=== PATIENT | male | born 1955 | race Caucasian/White ===

== ENCOUNTER 2020-11-24 09:17 | Outpatient (CLI) | payer MEDICARE | END 2020-11-24 09:18 | disposition home or self-care (01) | LOC: DTY/OP 09:17 | PROVIDERS: ATTEND Surgery | DX: E66.01 Morbid (severe) obesity due to excess calories (principal) | CPT/HCPCS: 97802 ==

== ENCOUNTER 2021-01-12 08:33 | Outpatient (CLI) | payer MEDICARE ==
[2021-01-12 09:36] LABS: #Eosinphils 0.1 10x3/uL (0.0-0.5); #Monocytes 0.5 10x3/uL (0.0-1.1); #Neutrophils 2.7 10x3/uL (1.5-8.4); %Basophils 0.7 % (0.0-2.0); %Eosinophils 2.6 % (0.0-6.0); %Lymphocytes 36.9 % (18.0-47.0); %Monocytes 9.2 % (0.0-10.0); %Neutrophils 50.4 % (40.0-75.0); Hemoglobin 12.5 g/dL (13.5-17.5); Mean Corpuscular HGB CONC 32.8 g/dL (32.0-36.0); Mean Corpuscular Hemoglobin 26.4 pg (27.0-33.0); Mean Corpuscular Volume 80.4 fl (81.2-95.1); Mean Platelet Volume 9.4 fl (7.4-10.4); Platelet Count 249 10x3/uL (150-450); RBC Distribution Width 13.6 % (11.5-14.5); Red Blood Cell (RBC) Count 4.74 10x6/uL (4.32-5.72); White Blood Cell (WBC) Count 5.4 10x3/uL (3.5-10.5)
[2021-01-12 10:00] LABS: ALT (SGPT) 35 U/L (8-55); AST (SGOT) 41 U/L (5-34); Albumin 4.2 g/dL (3.4-4.8); Alkaline Phosphatase 52 U/L (40-110); Anion Gap 15 mmol/L (10-20); BUN (Urea Nitrogen) 17 mg/dL (8.4-25.7); Bilirubin, Total 0.7 mg/dL (0.2-1.2); Calc. Creatinine Clearance 0 mL/min (70-130); Calcium 9.9 mg/dL (7.8-10.44); Carbon Dioxide 27 mmol/L (23-31); Chloride 103 mmol/L (98-107); Globulin 2.6 g/dL (2.4-3.5); Potassium 3.9 mmol/L (3.5-5.1); Protein, Total 6.8 g/dL (5.8-8.1); Sodium 141 mmol/L (136-145)
[2021-01-12 10:14] LABS: Glucose 58 mg/dL (80-115)
[2021-01-12 11:36] LABS: Hemoglobin A1c 7.3 % (4.0-6.0)
[2021-01-12 17:58] LABS: SARS-CoV-2 PCR by NAA Not Detected (NotDetected)
== END 2021-01-12 08:34 | disposition home or self-care (01) ==
LOC: LABBT 08:33
PROVIDERS: ATTEND Surgery
DX: Z01.818 Encounter for other preprocedural examination (principal); E66.01 Morbid (severe) obesity due to excess calories; Z20.822 Contact with and (suspected) exposure to COVID-19; R73.09 Other abnormal glucose
CPT/HCPCS: 71046; 80053; 83036; 85025; U0003; U0005; 87635

== ENCOUNTER 2021-01-12 09:00 | Inpatient (IN) | payer MEDICARE ==
[2021-01-14 10:38] VITALS: BMI 41.8
[2021-01-17] MEDS ORDERED: Fentanyl 100 MCG/2 ML VIAL ONE ×2 (07:43→10:49)
[2021-01-17] MEDS ORDERED: EPINEPHrine 1 MG/ML AMP ONE (07:58)
[2021-01-17] MEDS ORDERED: Bupivacaine 0.25% HCL 30 ML VIAL ONE (07:58)
[2021-01-17] MEDS ORDERED: Heparin 5,000 UNITS/ML VIAL ONE (08:14)
[2021-01-17] MEDS ORDERED: Lidocaine 2% Jelly 5 ML TUBE ONE (08:28)
[2021-01-17] MEDS ORDERED: Lidocaine 1% PF 5 ML VIAL ONE (08:41)
[2021-01-17] MEDS ORDERED: ePHEDrine 50 MG/ML VIAL ONE (08:41)
[2021-01-17] MEDS ORDERED: Rocuronium Bromide 10 MG/ML (10ML VIAL) ONE (08:41)
[2021-01-17] MEDS ORDERED: PROPOFOL 200 MG/20 ML VIAL ONE (08:41)
[2021-01-17] MEDS ORDERED: Glycopyrrolate 0.2 MG/ML 5 ML SYRINGE ONE (08:41)
[2021-01-17] MEDS ORDERED: PHENYLEPHRINE-NS 100 MCG/ML 10 ML SYRINGE ONE (08:41)
[2021-01-17] MEDS ORDERED: Ondansetron PF 4 MG/2 ML Vial ONE (08:41)
[2021-01-17] MEDS ORDERED: Dextrose 5% in Water 1,000 ML IV PRN (10:02)
[2021-01-17] MEDS ORDERED: Promethazine HCl 25 MG/ML VIAL IM PRN ×3 (10:02→11:15)
[2021-01-17] MEDS ORDERED: Hydrocodone-Acetamin 15 ML UDCUP PO PRN (10:02)
[2021-01-17] MEDS ORDERED: Ondansetron PF 4 MG/2 ML Vial IVP PRN ×2 (10:02→11:15)
[2021-01-17] MEDS ORDERED: diphenhydrAMINE 50 MG/ML VIAL IVP PRN (10:02)
[2021-01-17] MEDS ORDERED: Dextrose 50% Abboject 50 ML SYRINGE SLOW IVP PRN (10:02)
[2021-01-17] MEDS ORDERED: Promethazine HCl 25 MG/ML VIAL SLOW IVP PRN (10:14)
[2021-01-17] MEDS ORDERED: Ondansetron HCl/PF 4 MG/2 ML Vial IVP PRN (10:14)
[2021-01-17] MEDS ORDERED: Naloxone HCl 0.4 mg/ml Vial IV PRN (11:15)
[2021-01-17] MEDS ORDERED: fentaNYL Citrate/PF 2,000 MCG in Sodium Chloride 0.9% 60 ML IV PRN (11:15)
[2021-01-17] MEDS ORDERED: diphenhydrAMINE 25 MG CAP PO PRN (11:15)
[2021-01-17] MEDS ORDERED: Zolpidem Tartrate 5 MG TAB PO PRN (11:15)
[2021-01-17] MEDS ORDERED: diphenhydrAMINE 50 MG/ML VIAL IM/IV PRN (11:15)
[2021-01-17] MEDS: CEFAZOLIN 2 GM in Premix Bag 1 BAG IVPB SCH ×2 (15:35→23:14)
[2021-01-17] MEDS: 1/2 NS w/KCL 20 mEq 1,000 ML IV SCH ×3 (15:43→23:14)
[2021-01-17] MEDS: hydrALAZINE 20 MG/ML VIAL SLOW IVP PRN ×2 (17:24→20:48)
[2021-01-18 06:06] LABS: #Eosinphils 0.1 thou/uL (0.0-0.7); #Lymphocytes 1.2 thou/uL (1.20-3.40); #Monocytes 0.5 thou/uL (0.11-0.59); #Neutrophils 4.3 thou/uL (1.40-6.50); %Basophils 0.3 % (0.0-1.0); %Eosinophils 0.8 % (0.0-10.0); %Lymphocytes 19.6 % (21.0-51.0); %Monocytes 8.1 % (0.0-10.0); %Neutrophils 71.1 % (42.0-75.0); Hemoglobin 11.7 g/dL (14.0-18.0); Mean Corpuscular HGB CONC 33.4 g/dL (32.0-36.0); Mean Corpuscular Hemoglobin 27.3 pg (27.0-31.0); Mean Corpuscular Volume 81.6 fL (78.0-98.0); Mean Platelet Volume 7.2 fL (7.4-10.4); Platelet Count 184 thou/uL (130-400); RBC Distribution Width 13.6 % (11.5-14.5); Red Blood Cell (RBC) Count 4.27 mill/uL (4.70-6.10); White Blood Cell (WBC) Count 6.1 thou/uL (4.8-10.8)
[2021-01-18 06:29] LABS: Anion Gap 17 mmol/L (10-20); BUN (Urea Nitrogen) 16 mg/dL (8.4-25.7); Calc. Creatinine Clearance 109 mL/min (70-130); Calcium 8.8 mg/dL (7.8-10.44); Carbon Dioxide 21 mmol/L (23-31); Chloride 100 mmol/L (98-107); Glucose 162 mg/dL (80-115); Potassium 4.4 mmol/L (3.5-5.1); Sodium 134 mmol/L (136-145)
[2021-01-18] MEDS ORDERED: Enoxaparin Sodium 40 MG/0.4 ML SYRINGE SC SCH (09:00)
[2021-01-18] MEDS ORDERED: Pantoprazole 40 MG VIAL IVP SCH (09:00)
[2021-01-18] MEDS ORDERED: Hydrocodone-Acetamin 15 ML UDCUP PO PRN (09:45)
[2021-01-18] MEDS: 1/2 NS w/KCL 20 mEq 1,000 ML IV SCH (10:25)
[2021-01-18 11:19] VITALS: BP 155/80; TEMP 98.2
== END 2021-01-18 13:14 | disposition home or self-care (01) | DRG 621 ==
LOC: SURG A 01-17 07:35 → EDSTATUS 01-17 09:00 → SURG A 01-17 12:34
PROVIDERS: ADMIT Surgery; ATTEND Surgery
PROC: 0DB64Z3 Excision of Stomach, Percutaneous Endoscopic Approach, Vertical (ICD-10-PCS; principal; 2021-01-17)
PROC: 0DJ68ZZ Inspection of Stomach, Via Natural or Artificial Opening Endoscopic (ICD-10-PCS; 2021-01-17)
DX: E66.01 Morbid (severe) obesity due to excess calories (principal); I10 Essential (primary) hypertension; E78.5 Hyperlipidemia, unspecified; I25.10 Atherosclerotic heart disease of native coronary artery without angina pectoris; F32.9 Major depressive disorder, single episode, unspecified; K21.9 Gastro-esophageal reflux disease without esophagitis; E11.51 Type 2 diabetes mellitus with diabetic peripheral angiopathy without gangrene; G47.30 Sleep apnea, unspecified; Z79.82 Long term (current) use of aspirin; Z68.41 Body mass index [BMI] 40.0-44.9, adult
CPT/HCPCS: 36415; 36416; 80048; 85025; 88307; C9113; J0171; J0360; J0690; J1200; J1644; J1650; J2405; J2704; J3010; J3480; J3490; S0020